=== PATIENT | male | born 1945 | race Caucasian/White ===

== ENCOUNTER 2017-07-21 09:20 | Inpatient (IN) | payer BC, MEDICARE ==
[2017-07-20] MEDS: TRANEXAMIC ACID 1,000 MG in DEXTROSE 5% 100 ML IVPB (06:00)
[2017-07-21] MEDS: traMADol 50 MG TAB PO ×2 (06:00→10:37)
[2017-07-21] MEDS: TRANEXAMIC ACID 1,000 MG in DEXTROSE 5% 100 ML IVPB (06:00)
[2017-07-21] MEDS: VANCOMYCIN 500MG/NS (PMX) 100 ML IVPB ×2 (06:00→22:15)
[2017-07-21] MEDS: DEXAMETHASONE 1 MG TAB PO ×2 (06:00→10:37)
[~2017-07-21 09:20] MED LIST: BUPIVACAINE 0.5% (SDV) 30 ML, morphine SULFATE (PF) 8 MG, EPINEPHrine 0.3 MG, KETOROLAC... IRR; PROPOFOL 200 MG INJ; VANCOMYCIN 500MG/NS (PMX) 100 ML IVPB
[2017-07-21] MEDS ORDERED: PROPOFOL 20 ML (10:22)
[2017-07-21] MEDS ORDERED: CEFAZOLIN 1 GM INJ (10:22)
[2017-07-21] MEDS ORDERED: GLYCOPYRROLATE 0.4 MG INJ (10:22)
[2017-07-21] MEDS ORDERED: NEOSTIGMINE 3 MG/3 ML SYRINGE (10:22)
[2017-07-21] MEDS ORDERED: ROCURONIUM 50 MG INJ (10:22)
[2017-07-21] MEDS ORDERED: ROPIVACAINE 0.5 % 30 ML VIAL (10:23)
[2017-07-21] MEDS ORDERED: ONDANSETRON 4 MG INJ (10:23)
[2017-07-21] MEDS ORDERED: MIDAZOLAM 1 MG/ML 2 ML INJ (10:23)
[2017-07-21] MEDS ORDERED: FENTAnyl 50 MCG/ML VIAL (10:23)
[2017-07-21] MEDS ORDERED: DEXAMETHASONE 4 MG/ML 1 ML INJ (10:23)
[2017-07-21] MEDS ORDERED: VANCOMYCIN 1 GM (PMX) 250 ML (10:34)
[2017-07-21] MEDS: VANCOMYCIN 1 GM (PMX) 250 ML IVPB (10:50)
[2017-07-21] MEDS: BUPIVACAINE 0.25% (MPF) 30 ML INJ (12:48)
[2017-07-21] MEDS: POLYMYXIN/BACITRACIN 1L IRRIG (12:49)
[2017-07-21] MEDS: CA CHLORIDE 10% 10 ML SYRINGE (12:49)
[2017-07-21] MEDS: THROMBIN 5000 UNIT VIAL (12:49)
[2017-07-21] MEDS ORDERED: SUGAMMADEX SODIUM 200 MG/2 ML VIAL IV (12:59)
[2017-07-21] MEDS ORDERED: IPRATROPIUM (NEB) 0.5 MG/2.5 ML AMP HHN (13:00)
[2017-07-21] MEDS ORDERED: LABETALOL HCL 20MG INJ IV (13:00)
[2017-07-21] MEDS ORDERED: MEPERIDINE 25 MG INJ IV (13:00)
[2017-07-21] MEDS ORDERED: MIDAZOLAM 1 MG/ML 2 ML INJ IV (13:00)
[2017-07-21] MEDS ORDERED: ONDANSETRON 4 MG INJ IV ×2 (13:00→13:30)
[2017-07-21] MEDS ORDERED: HYDROmorphONE (0.2 MG/ML) 10ML SYG IV ×3 (13:00)
[2017-07-21] MEDS ORDERED: hydrALAzine 20 MG INJ IV (13:00)
[2017-07-21] MEDS ORDERED: TRIMETHOBENZAMIDE 100 MG/ML VIAL IM (13:00)
[2017-07-21] MEDS ORDERED: FENTAnyl 50 MCG/ML VIAL IV ×3 (13:00)
[2017-07-21] MEDS ORDERED: OXYCODONE/ACETAMINOPHEN (5/325) TAB PO ×2 (13:00)
[2017-07-21] MEDS ORDERED: EPHEDrine SULFATE 50 MG/5 ML SYG IV (13:00)
[2017-07-21] MEDS ORDERED: DIPHENHYDRAMINE 50 MG INJ IV ×2 (13:00→13:30)
[2017-07-21] MEDS ORDERED: ALBUTEROL 0.083% (NEB) 2.5 MG/3 ML AMP HHN (13:00)
[2017-07-21] MEDS ORDERED: MAGNESIUM HYDROXIDE 30ML CUP PO (13:30)
[2017-07-21] MEDS ORDERED: ACETAMINOPHEN 500 MG TAB PO (13:30)
[2017-07-21] MEDS ORDERED: ZOLPIDEM 5 MG TAB PO (13:30)
[2017-07-21] MEDS ORDERED: morphine 2 MG INJ IV ×2 (13:30)
[2017-07-21] MEDS ORDERED: KETOROLAC 15 MG INJ IV (13:30)
[2017-07-21] MEDS: TRANEXAMIC ACID 1,000 MG in DEXTROSE 5% 100 ML IV (13:47)
[2017-07-21] MEDS ORDERED: LORAZEPAM 0.5 MG TAB PO (15:00)
[2017-07-21] MEDS: DEXAMETHASONE 2 MG TAB PO ×2 (18:02→23:19)
[2017-07-21] MEDS: SENNA/DOCUSATE NA (8.6MG/50MG) TAB PO (21:45)
[2017-07-21] MEDS: TERAZOSIN 5 MG CAP PO (22:15)
[2017-07-21] MEDS: BUPROPION (SR) 150 MG TAB PO (22:35)
[2017-07-22] MEDS: DEXAMETHASONE 2 MG TAB PO ×2 (05:31→12:06)
[2017-07-22] MEDS: OXYCODONE/ACETAMINOPHEN (5/325) TAB PO ×2 (06:18→12:06)
[2017-07-22] MEDS: FINASTERIDE 5 MG TAB PO (08:51)
[2017-07-22] MEDS: SENNA/DOCUSATE NA (8.6MG/50MG) TAB PO (08:51)
[2017-07-22] MEDS: ESCITALOPRAM 10 MG TAB PO (08:51)
[2017-07-22] MEDS: BUPROPION (SR) 150 MG TAB PO (08:52)
[2017-07-22] MEDS: ASPIRIN 81 MG TAB PO (08:52)
[2017-07-22] MEDS ORDERED: NON-FORMULARY/PATIENT OWN MED (Mirabegron (Myrbetriq) 50 MG) PO (09:00)
[2017-07-22] MEDS: VANCOMYCIN 500MG/NS (PMX) 100 ML IVPB (09:53)
== END 2017-07-22 14:46 | disposition home or self-care (01) | DRG 483 ==
LOC: REC 09:20 → MS1 14:16
PROC: 0RRJ00Z Replacement of Right Shoulder Joint with Reverse Ball and Socket Synthetic Substitute, Open Approach (ICD-10-PCS; principal; 2017-07-21 11:51)
DX: M19.211 Secondary osteoarthritis, right shoulder (principal); M75.101 Unspecified rotator cuff tear or rupture of right shoulder, not specified as traumatic; S46.211A Strain of muscle, fascia and tendon of other parts of biceps, right arm, initial encounter
CPT/HCPCS: 71045; 73030-RT; 86999; 97165; 97535